=== PATIENT | female | born 1945 | race Caucasian/White ===

== ENCOUNTER 2023-03-12 08:21 | Outpatient (CLI) | payer MEDICARE, BC, SELFPAY | END 2023-03-12 08:22 | disposition home or self-care (01) | LOC: NFLDREF 03-20 11:37 | PROVIDERS: PCP Family Medicine; Referring Provider Family Medicine; Visit Provider Family Medicine | DX: I10 Essential (primary) hypertension (principal); E78.5 Hyperlipidemia, unspecified; R73.03 Prediabetes; E66.9 Obesity, unspecified; E55.9 Vitamin D deficiency, unspecified; N18.30 Chronic kidney disease, stage 3 unspecified | CPT/HCPCS: 80048; 80053; 80061 ==

== ENCOUNTER 2024-04-08 14:26 | Outpatient (CLI) | payer MEDICARE, BC, SELFPAY | END 2024-04-08 14:27 | disposition home or self-care (01) | PROVIDERS: PCP Family Medicine; Visit Provider Family Medicine | DX: E78.5 Hyperlipidemia, unspecified (principal); I12.9 Hypertensive chronic kidney disease with stage 1 through stage 4 chronic kidney disease, or unspecified chronic kidney disease; N18.31 Chronic kidney disease, stage 3a; R10.13 Epigastric pain; R63.4 Abnormal weight loss; R73.03 Prediabetes; E55.9 Vitamin D deficiency, unspecified | CPT/HCPCS: 80053; 80061; 82306; 82607; 82728; 84443 ==